=== PATIENT | male | born 1995 | race Caucasian/White ===

== ENCOUNTER 2017-06-03 18:55 | Emergency (ER) | payer BC, OTHER ==
[~2017-06-03] VITALS: Ht 182.9 cm; Wt 77.1 kg
[~2017-06-03 18:55] MED LIST: 12 HOUR COLD R120 MG PO; ACET325UDC; ALBU90OI INH; AMOX500 PO; BENZ100A PO; CODACE30 PO; DESO.05TCA TP; DEXGUASY; DIPH25; IBUP800 PO; LOPE2EL PO; NAPR500 PO; O; PENVK500 PO; PRED15SY PO; PROCODE120 PO; PROM25 PO; PROM25S PR; RXCODACET PO; RXHYDGUAS PO; RXNEOPOLHC AS; SULTRIDS PO
== END 2017-06-03 22:21 | disposition left against medical advice (07) ==
LOC: ER 18:55
DX: Z53.21 Procedure and treatment not carried out due to patient leaving prior to being seen by health care provider (principal)
CPT/HCPCS: 99281

== ENCOUNTER 2019-08-17 21:32 | Emergency (ER) | payer SELFPAY ==
[~2019-08-17] VITALS: Ht 182.9 cm; Wt 72.6 kg
[~2019-08-17 21:32] MED LIST changes: +Norco 5-325 Ta1 EACH PO; +Zofran4 MG PO
[2019-08-17] MEDS ORDERED: KETO10 PO (22:52)
== END 2019-08-17 23:00 | disposition home or self-care (01) ==
LOC: ER 21:32
DX: S20.212A Contusion of left front wall of thorax, initial encounter (principal); I10 Essential (primary) hypertension; F17.200 Nicotine dependence, unspecified, uncomplicated; X58.XXXA Exposure to other specified factors, initial encounter
CPT/HCPCS: 71046; 99283-25; J1885